=== PATIENT | male | born 1980 | race Caucasian/White ===

== ENCOUNTER 2018-03-15 11:46 | Emergency (ER) | payer BC ==
[~2018-03-15] VITALS: Ht 180.3 cm; Wt 78.4 kg
[~2018-03-15 11:46] MED LIST: PENI500T PO; TYLE3 PO; Z.0.NO CURRENT MEDS
[2018-03-15 11:50] VITALS: BP 138/60; PULSE 93; RESP 18; TEMP 98.2; O2SAT 98
--- NOTE | 2018-03-15 12:08 | PD ---
HPI Chief Complaint: Musculoskeletal Complaint Time Seen by Provider: 11:58 Travel History International Travel<30 days: No Contact w/Intl Traveler<30days: No Traveled to known affect area: No History of Present Illness HPI Patient is a 38 year old male who comes in complaining of left shoulder pain for one month. He says it started after working out at the gym. He says since then he has had pain to the upper shoulder radiating into the side of his neck. Pain is worse with raising his left arm. He describes the pain as a soreness. He tried taking one dose of ibuprofen without relief of his symptoms. He denies any other injury or other symptoms. PFSH Past Medical History Medical History: Denies Significant Hx Diminished Hearing: No Immunizations Current: Yes Tetanus Vaccination: > 5 Years Influenza Vaccination: No ?: Not Past Surgical History Surgical History: No Previous Surgery Social History Alcohol Use: No Tobacco Use: No Substance Use: No Allergies-Medications (Allergen,Severity, Reaction): Coded Allergies: No Known Allergies (Verified Adverse Reaction, Unknown, 03/15/18) Reported Meds & Prescriptions Reported Meds & Active Scripts Active No Active Prescriptions or Reported Medications Review of Systems General / Constitutional: No: Fever, Chills HENT: No: Headaches, Lightheadedness Cardiovascular: No: Chest Pain or Discomfort Respiratory: No: Shortness of Breath Musculoskeletal: Positive: Pain, No: Edema Skin: No Rash, No Change in Pigmentation Neurologic: No: Weakness, Dizziness, Sensory Disturbance Physical Exam Narrative GENERAL: Awake and alert, in no acute distress. SKIN: Focused skin assessment warm/dry. No wounds or signs of infection. HEAD: Atraumatic. Normocephalic. EYES: Pupils equal and round. No scleral icterus. No injection or drainage. ENT: Mucous membranes pink and moist. NECK: Trachea midline. No JVD. No cervical spine tenderness. Tender to left trapezius muscle. CARDIOVASCULAR: Regular rate and rhythm. No murmur appreciated. RESPIRATORY: No accessory muscle use. Clear to auscultation. Breath sounds equal bilaterally. MUSCULOSKELETAL: No obvious deformities. No clubbing. No cyanosis. No edema. Pain with abduction of the left arm. Radial pulse intact. NEUROLOGICAL: Awake and alert. No obvious cranial nerve deficits. Motor grossly within normal limits. Normal speech. Data Data Last Documented VS Vital Signs Date Time Temp Pulse Resp B/P (MAP) Pulse Ox O2 Delivery O2 Flow Rate FiO2 03/15/18 11:50 98.2 93 18 138/60 (86) 98 Orders Orders Shoulder, Complete (>2vws) (03/15/18 ) Ibuprofen (Motrin) (03/15/18 12:15) Cyclobenzaprine (Flexeril) (03/15/18 12:15) MDM Medical Decision Making Medical Screen Exam Complete: Yes Emergency Medical Condition: Yes Medical Record Reviewed: Yes Differential Diagnosis muscle strain vs rotator cuff injury vs fracture Narrative Course Patient is a 38 year old male who comes in complaining of left shoulder pain. Pain is worse with movement on exam. XR of the shoulder performed shows no acute abnormalities. Given Ibuprofen and Flexeril. Given a prescription for Flexeril and advised to continue Ibuprofen at home. Advised to follow up with orthopedics. Advised to return any time for any worsening symptoms. Diagnosis Primary Impression: Left shoulder strain Qualified Codes: S46.912A - Strain of unspecified muscle, fascia and tendon at shoulder and upper arm level, left arm, initial encounter Referrals: Gallo Bentley MD call for appointment Patient Instructions: General Instructions, Shoulder Sprain (ED) Additional Instructions: Take Ibuprofen and flexeril as needed for pain. Follow up with orthopedics. Return to the ED as needed for any worsening symptoms. Scripts Cyclobenzaprine (Flexeril) 10 Mg Tab 10 MG PO TID for Muscle Spasm, #15 TAB 0 Refills Prov: Lisbeth Copeland MD 03/15/18 Disposition: 01 DISCHARGE HOME Condition: Stable Lisbeth Copeland MD Mar 15, 2018 12:07
[2018-03-15] MEDS ORDERED: IBUPROFEN 600 MG TAB PO ONE (12:15)
[2018-03-15] MEDS ORDERED: CYCLOBENZAPRINE HCL 10 MG TAB PO ONE (12:15)
[2018-03-15] MEDS ORDERED: CYCL10TA PO (12:53)
--- NOTE | 2018-03-15 12:53 | RADRPT ---
EXAM DATE/TIME: 03/15/2018 12:30 [facility] COMPARISON: No previous studies available for comparison. INDICATIONS : No known injury. Pain in shoulder for one month. MEDICAL HISTORY : None. SURGICAL HISTORY : None. ENCOUNTER: Initial ACUITY: 1 month PAIN SCORE: 9/10 LOCATION: Left Shoulder FINDINGS: Multiple view examination of the left shoulder demonstrates no evidence of fracture or dislocation. The glenohumeral and acromioclavicular joints are maintained. There is normal range of motion betwee n internal and external rotation. Bony mineralization is normal. CONCLUSION: No acute fracture. Geraldo Doe MD on March 15, 2018 at 12:51 Board Certified Radiologist. This report was verified electronically.
== END 2018-03-15 13:00 | disposition home or self-care (01) ==
LOC: PHEFT 11:46
DX: S46.912A Strain of unspecified muscle, fascia and tendon at shoulder and upper arm level, left arm, initial encounter (principal); Y93.B9 Activity, other involving muscle strengthening exercises
CPT/HCPCS: 73030; 99283